=== PATIENT | female | born 2005 | race African-American/Black ===

== ENCOUNTER 2024-07-19 05:35 | Inpatient (IN) | payer OTHER, SELFPAY ==
[2024-07-18 21:20] VITALS: BP 136/98
[2024-07-18] MEDS: MOTRIN 400 MG PO (21:27)
--- NOTE | 2024-07-19 01:00 | EDRN ---
Patient back from waiting room introduced myself to patient, she had an IV in her left forearm which the hospital she left AMA from didn't take out, removed this IV
--- NOTE | 2024-07-19 01:39 | ED.GENMED ---
History of Present Illness
General
Chief Complaint: Oral/Mouth Problem
Source: patient and family (Mother)
Exam Limitations: none
Time Seen by Provider: 07/19/24 00:52
Nursing documentation reviewed up to this point in time: agreed with
History of Present Illness
History of Present Illness:
18-year-old female with no reported chronic medical issues presents to the ER for evaluation of right facial swelling and pain. Patient reports that symptoms initially started on Thursday and she was initially seen in urgent care told that she
likely had salivary stone and was told to use sialagogues and massage, warm compresses. Despite these measures she reports symptoms increased and she started to get significant pain and swelling in the area and so she ultimately presented to "[facility] late last night/early this morning. She was diagnosed with a right parotid abscess (per review of medical records which we were able to obtain) and it was felt that she needed emergent ENT evaluation and so she was transferred to ""[facility]. There she was apparently initially seen in triage but ultimately left prior to completing treatment and consultation. She says that she left because the wait was very long and she needed to get home. She decided to come
here for second opinion because she says that her facial pain is getting worse. She denies any fevers or chills. She denies any throat pain, change in her voice, drooling. Denies trauma. She denies any other complaints.
Review of Systems
Review of Systems
All Other Systems: ROS reviewed and negative except as documented in HPI and ROS
Constitutional: Denies fever or chills
EENT: Reports other (Facial swelling); Denies sore throat or runny nose
Respiratory: Denies trouble breathing
ABD/GI: Denies abdominal pain or vomiting
Neurological: Denies headache
Phy Exam
Physical Exam
Physical Exam:
General: Awake, alert, oriented x3; no acute distress
Head: Normocephalic, atraumatic
Eyes: Conjunctiva normal
Face: Patient has tenderness and swelling along the right preauricular region extending towards the angle of the mandible and slightly in the submandibular region on the right, area is warm and mildly erythematous, no crepitus, no fluctuance
appreciated
Throat: Airway intact, handling secretions, midline uvula, no tongue elevation, excellent dentition with no signs of gingivitis or swelling of the gums
Neck: Trachea midline, supple without meningismus
Lungs: Breathing comfortably no distress
Heart: Regular rate
Neuro: No gross deficits
Extremities: warm and well-perfused
Scores
Heart Failure Risk
Heart Failure Risk Score: Not Applicable
Heart Score for Chest Pain Patients
STEMI patient?: Not applicable
Withdrawal Assessment of Alcohol
Withdrawal Assessment Completed?: Not applicable
Sepsis
Sepsis Screening
Sepsis Assessment: Sepsis Ruled Out
Sepsis Screen
Sepsis Screen: Sepsis Ruled Out
Date: 07/19/24
Time: 03:37
Course
Orders/Labs/Results
Orders:
Orders
07/18/24 21:26
Ibuprofen [Motrin] 400 mg .ROUTE .STK-MED ONE
07/18/24 21:27
Ibuprofen [Motrin] 400 mg PO NOW STA
07/19/24 01:59
Complete Blood Count/With Diff Urgent
07/19/24 02:05
Consult Notification Routine
Specialty to Notify: ENT
ENT CONSULT Routine
Consulting Provider: Charli Sharif
Was physician already notified: No
Reason for Consult: right parotid abscess
07/19/24 02:21
Comprehensive Metabolic Panel Urgent
Comment: REDRAW
07/19/24 02:43
Ampicillin/Sulbactam 3 G [Unasyn] 3 gm 0.9% Sodium Chloride 100 ml [Nss] 100 ml IV NOW
Abnormal Lab Results
07/19/24 07/19/24
59 02:21
RBC 3.59 L 10^6/uL
(4.20-5.40)
Hgb 10.4 L g/dL
(12.0-16.0)
Hct 32.4 L %
(37.0-47.0)
MCHC 32.1 L g/dL
(33.0-37.0)
Absolute Monos (auto) 0.8 H 10^3/uL
(0.1-0.6)
Lymphocytes % 18.8 L %
(20.5-51.1)
Eosinophils % 6.4 H %
(0-6)
Glucose 101 H mg/dl
(70-99)
07/19/24 01:59
07/19/24 02:21
Vital Signs
Initial and Last Documented VS:
Initial Vital Signs
Temp Pulse Resp BP Pulse Ox
37.2 C 92 20 136/98 99
07/18/24 21:20 07/18/24 21:20 07/18/24 21:20 07/18/24 21:20 07/18/24 21:20
Last Documented Vital Signs
Temp Pulse Resp BP Pulse Ox
37.2 C 83 16 143/50 98
07/18/24 21:20 07/19/24 01:56 07/19/24 01:56 07/19/24 01:56 07/19/24 01:56
MDM/Problems Addressed
Differential Diagnosis Includes:
Dental abscess, parotid abscess, sialoadenitis
MDM/Problems Addressed:
18-year-old female presents with worsening right facial pain and swelling; diagnosed with a right parotid abscess earlier today was transferred for ENT referral at [place] but left prior to treatment completion. Vitals and exam as above.
Reviewed CT report from [facility] she does not yet have roughly 2 x 2 cm abscess in the right parotid region with stranding of the surrounding tissue. Will send CBC and a CMP. Treat with Unasyn. Consult to ENT. Admit for treatment and
consultation. Case discussed with hospitalist.
*Radiology
Radiology exam reviewed: radiology read reviewed (Reviewed external radiology report)
*Pulse Oximetry
Patient hypoxic: no
*Critical Care Note
Total Time (30-74mins, 75-104mins- exclusive of procedures): Not Applicable
Data Reviewed
Source: patient and family
Patient Management
Discussion with other providers: Hospitalist (Discussed with hospitalist)
Escalation/DeEscalation of care consider admission/obs:
Admission indicated
ED Attending Note
-
Portions of this chart may have been created with voice recognition software.� Occasional wrong word or��sound alike� substitutions may have occurred due to the inherent limitations of voice recognition software.
Discharge Plan
Departure
Patient Disposition: Admit
Date of Disposition: 07/19/24
Time of Disposition: 02:31
Admit to doctor: Kolby
Presentation/result/management discussed w/ accepting MD/DO: Hospitalist
Discharge Problem:
Abscess of parotid gland
Prescriptions:
No Action
No Current Medications
0
Referrals:
NONE,* [Family Provider] -
Interventions
Interventions:
*Risk Screen - Suicide Last Done: 07/18/24 21:20
*Neglect/Abuse Screening Last Done: 07/18/24 21:20
ED- Fall Risk Assessment Last Done: 07/19/24 02:11
Discharge Date and Time
Print Language: SAMI
[2024-07-19 01:56] VITALS: BP 143/50; BMI 46.9
[2024-07-19 02:10] LABS: % Basophils 0.4 % (0-2); % Eosinophils 6.4 % (0-6); % Immature Granulocytes 0.1 % (0-0.5); % Lymphocytes 18.8 % (20.5-51.1); % Monocytes 8.3 % (1.7-9.3); Absolute Eosinophils 0.6 10^3/uL (0-0.7); Absolute Lymphocytes 1.7 10^3/uL (1.2-3.4); Absolute Monocytes 0.8 10^3/uL (0.1-0.6); Absolute Neutrophils 6.1 10^3/uL (1.4-6.5); Hematocrit 32.4 % (37.0-47.0); Hemoglobin 10.4 g/dL (12.0-16.0); Mean Corp Hgb Conc. 32.1 g/dL (33.0-37.0); Mean Corpuscular Volume 90.3 fL (81.0-99.0); Mean Platelet Volume 9.3 fL (7.4-10.4); Nucleated Red Blood Cells % 0 %; Platelet Count 327 10^3/uL (130-400); Red Blood Cell Count 3.59 10^6/uL (4.20-5.40); Red Cell Dist. Width 13.9 % (11.5-14.5); White Blood Cell Count 9.2 10^3/uL (4.8-10.8)
[2024-07-19 02:40] LABS: ALT (SGPT) 18 U/L (0-35); AST (SGOT) 24 U/L (14-36); Albumin 3.7 g/dl (3.5-5.0); Alkaline Phosphatase 93 U/L (38-126); Blood Urea Nitrogen 9 mg/dl (7-17); Calcium 8.8 mg/dl (8.4-10.2); Carbon Dioxide 23 mmol/L (22-30); Chloride 106 mmol/L (98-107); Estimated Creatinine Clearance > 125 ml/min; Glucose 101 mg/dl (70-99); Potassium 3.8 mmol/L (3.5-5.1); Sodium 137 mmol/L (135-145); Total Bilirubin 0.3 mg/dl (0.2-1.3); Total Protein 6.5 g/dl (6.3-8.2); eGFR > 60.00
[2024-07-19] MEDS: UNASYN IV ×4 (03:13→22:04)
--- NOTE | 2024-07-19 04:52 | HPS.HSE ---
Family Physician
-
Family Physician: * NONE
Chief Complaint
-
Facial Pain / Swelling
History of Present Illness
Patient is a 18y F with no significant PMH who presents to ED complaining of R facial swelling for about one week. Patient states that she first noted the symptoms on Thursday. She was seen at an Urgent Care and diagnosed with sialoadenitis and
recommended NSAIDs, sour candies, etc. She states that the swelling continued to progress and on 07/18/24 she presented to [facility] for further evaluation. CT scan done there revealed a R parotid abscess. Patient reports that she was
transferred from [facility] to [place] for ENT evaluation. She waited several hours with no evaluation and then elected to leave that facility.
She then presented to ED for further evaluation.
Patient complains of progressive swelling and firmness over the R cheek and extending to the ear and into the neck.
No swallowing issues. No breathing difficulty. No fevers or chills.
There is no drainage / foul tasting discharge into the mouth.
She denies any prior history of similar symptoms.
Medical History
Past Medical History
Past Medical History: Reports None
Past Surgical History: Reports None
Social History
Tobacco: Smoker (Current every day smoker (quit one week ago).)
Alcohol: None
Drug: None
Family History
Family History: Other (Father: CHF, CKD)
Allergies / Home Medications
Allergies reflects when Allergies were last updated in [employer].
Home Medications with original date entered in [employer]
Allergy/Medication List:
Allergies
Allergy/AdvReac Type Severity Reaction Status Date / Time
peanut Allergy Swelling Verified 07/18/24 21:25
Home Medications
No Meds [No Current Medications] 07/19/24
Review of Systems
-
History Source: Patient
A 12 point ROS was completed and negative except as noted: Yes
Constitutional: Denies Fever or Chills
EENT: Reports Other (Facial swelling, tenderness, firmness.); Denies Sore Throat
Respiratory: Denies Cough or Trouble Breathing
Cardiac: Denies Chest Pain or Palpitations
Abdomen/GI: Denies Abdominal Pain, Nausea, Vomiting or Diarrhea
Musculoskeletal: Denies Joint Pain or Edema
Neurological: Denies Dizzy or Headache
Physical Exam
Vital Signs
Vital Signs
Temp Pulse Resp BP Pulse Ox
98.9 F 83 16 143/50 98
07/18/24 21:20 07/19/24 01:56 07/19/24 01:56 07/19/24 01:56 07/19/24 01:56
Physical Exam
General: Other (18y F in no acute distress.)
HEENT: Other (Induration, tenderness, mild erythema over the R face from the ear to the submandibular region. Pos regional adenopathy. No intra-oral lesions appreciated.)
Respiratory: Clear; No Wheezes, Rales or Rhonchi
Cardiac: S1/S2 and Regular Rhythm; No Murmur
Musculoskeletal: No Edema
Laboratory Results
-
07/19/24 01:59
07/19/24 02:21
Laboratory Results
Total Bilirubin 0.3 mg/dl (0.2-1.3) 07/19/24 02:21
AST 24 U/L (14-36) 07/19/24 02:21
ALT 18 U/L (0-35) 07/19/24 02:21
Alkaline Phosphatase 93 U/L (38-126) 07/19/24 02:21
Impression/Plan
-
A/P: Patient is a 18y F with no significant PMH who presents to ED complaining of R facial pain, swelling and redness that has been progressive for about one week.
Right Parotid Abscess
- Admit for further evaluation and treatment.
- IV Unasyn for now.
- Supportive care with pain control, etc.
- ENT evaluation for additional recommendations.
Anemia
- Unclear chronicity / etiology.
- Check iron studies. Follow for changes.
DVT Prophylaxis: SCDs
Code Status: Full
[2024-07-19 07:29] LABS: Iron 46 ug/dl (37-170)
[2024-07-19 07:38] LABS: Percent Saturation 16 % (20-50); Total Iron Binding Capacity 277 ug/dl (265-497)
[2024-07-19 08:13] VITALS: BP 121/76
[2024-07-19] MEDS: TORADOL 15 MG IV (09:23)
[2024-07-19] MEDS: NSS 1000 IV ×2 (09:24→20:31)
--- NOTE | 2024-07-19 12:18 | W.PN.UPDATE ---
Update Note
Progress Note Update
Seen and examined independent of pulmonary physician. Patient states of pain at the right mandibular side. States at home she was feeling hard.
Of note patient went to [facility] and then was transferred to [place] where she left AM. Per discussion with patient she was told she would require surgery. Stated it took prolonged period of time to be seen and left AMA.
[facility] records scanned into system
General: Other (18y F in no acute distress.) morbidly obese
HEENT: Other (Induration, tenderness, mild erythema over the R face from the ear to the submandibular region. Pos regional adenopathy. No intra-oral lesions appreciated.)
Respiratory: Clear; No Wheezes, Rales or Rhonchi
Cardiac: S1/S2 and Regular Rhythm; No Murmur
Musculoskeletal: No Edema
Abdomen positive bowel sounds nontender nondistended
Extremities no edema
Neuro awake alert and oriented
A/P: Patient is a 18y F with no significant PMH who presents to ED complaining of R facial pain, swelling and redness that has been progressive for about one week.
Right Parotid Abscess
- IV Unasyn for now. Started on IVF. NPO for now.
- Supportive care with pain control, etc.
-CT at the outside hospital with right parotid gland superficial lobe pinguecula space mildly enhancing lesion/abscess 2.6 x 1.4 cm in diameter with overlying contour bulge stranding and subcutaneous fat and thickened fascia. Enlarged right group
2 lymph nodes. Normal appearance of the mandible with no obvious osseous lesion.
- ENT evaluation for additional recommendations. Discussed with Dr. Wade.
Anemia
- Unclear chronicity / etiology.
- Check iron studies. Follow for changes.
Morbid obesity due to excess calories
-Counseled on weight loss after resolution of acute illness. BMI 47.
Marijuana usage
-UDS positive for THC at [facility] hospital
DVT Prophylaxis: started lovenox
Code Status: Full
--- NOTE | 2024-07-19 12:36 | CON.MD ---
Consultation - Medical
-
18 yo developed swelling R parotid region last several days
Was in outside ER and told she had an abscess, left due to long wait
Presently in less pain after pain med
Pt smokes, denies DM or dental issues
PE - Swollen, indurated area R parotid
No major cellulitis , no fluctuance
No adenopathy
A/P R parotitis
Clinically no definitive abscess, which would be an unusual finding in parotitis though possible
Would recheck CT with contrast as we do not have access to these films, pt agreeable
Agree with IV Unasyn, IV fluids
Warm compresses and a few doses of steroid
Should improve with medical management, but await review of CT
[2024-07-19 12:46] VITALS: BP 100/64
[2024-07-19 14:47] LABS: HCG, Serum Qualitative Screen Negative
[2024-07-19 15:02] LABS: Ferritin 35.8 ng/ml (6.24-137)
[2024-07-19 15:33] LABS: Folate 7.3 ng/ml (2.76-20); Vitamin B12 238 pg/ml (239-931)
[2024-07-19 15:54] VITALS: BP 131/68
--- NOTE | 2024-07-19 15:56 | PTCARENOTE ---
Transfer of patient care, report received from Anh in ED, VSS received patient AAOx3, lungs CTA, HRR, Abdomen soft, non tender + BS x 4 quadrants. IV fluids infusing to right wrist as MD order. Pt NPO since 11:30 AM. pt oob and ambulated to w/c
to be brought to ED [facility] for testing.
[2024-07-19] MEDS: DECADRON 6 MG IV ×2 (16:53→22:01)
--- NOTE | 2024-07-19 19:48 | W.PN.ENT ---
Today's Communication
-
No need for surgery at this point
Impression / Plan
-
CT scan is personally reviewed. It was read as a 12 mmm anterior abscess; this appears to be obstructed saliva in salivary duct as opposed to an abscess.
Because she is already improving, and because a surgery would entail scarring and risk of facial nerve drainage, this will be handled medically. We will continue antibiotics, aggressive hydration, and sialagogues.
Will follow
Subjective Data
-
Patient is feeling much better
Objective Data
-
Vital Signs
Temp Pulse Resp BP Pulse Ox
98.7 F 79 14 131/68 98
07/19/24 15:54 07/19/24 15:54 07/19/24 15:54 07/19/24 15:54 07/19/24 12:46
Lab Results
07/19/24 01:59
07/19/24 02:21
Calcium 8.8 mg/dl (8.4-10.2) 07/19/24 02:21
Total Bilirubin 0.3 mg/dl (0.2-1.3) 07/19/24 02:21
AST 24 U/L (14-36) 07/19/24 02:21
ALT 18 U/L (0-35) 07/19/24 02:21
Alkaline Phosphatase 93 U/L (38-126) 07/19/24 02:21
Physical Exam
-
Palpation is not c/w a drainable abscess
[2024-07-19] MEDS: LOVENOX 40 MG SC (20:26)
[2024-07-19 20:30] VITALS: BP 132/89
[2024-07-20 00:16] VITALS: BP 113/72
[2024-07-20] MEDS: NSS 1000 IV (03:43)
[2024-07-20 04:15] VITALS: BP 108/71
[2024-07-20] MEDS: UNASYN IV ×2 (04:16→10:01)
[2024-07-20 05:11] VITALS: BP 108/71
[2024-07-20] MEDS: DECADRON 6 MG IV (06:03)
[2024-07-20 06:35] LABS: % Basophils 0.1 % (0-2); % Immature Granulocytes 0.5 % (0-0.5); % Lymphocytes 7.7 % (20.5-51.1); % Monocytes 1.1 % (1.7-9.3); % Neutrophils 90.6 % (42.2-75.2); Absolute Lymphocytes 0.7 10^3/uL (1.2-3.4); Absolute Monocytes 0.1 10^3/uL (0.1-0.6); Absolute Neutrophils 7.8 10^3/uL (1.4-6.5); Hematocrit 37.1 % (37.0-47.0); Mean Corp Hgb Conc. 32.3 g/dL (33.0-37.0); Mean Corpuscular Hgb 28.9 pg (27.0-31.0); Mean Corpuscular Volume 89.4 fL (81.0-99.0); Mean Platelet Volume 10.2 fL (7.4-10.4); Nucleated Red Blood Cells % 0 %; Platelet Count 352 10^3/uL (130-400); Red Blood Cell Count 4.15 10^6/uL (4.20-5.40); Red Cell Dist. Width 13.6 % (11.5-14.5); White Blood Cell Count 8.6 10^3/uL (4.8-10.8)
[2024-07-20 07:01] LABS: Blood Urea Nitrogen 8 mg/dl (7-17); Carbon Dioxide 20 mmol/L (22-30); Chloride 104 mmol/L (98-107); Estimated Creatinine Clearance > 125 ml/min; Glucose 123 mg/dl (70-99); Potassium 4.4 mmol/L (3.5-5.1); Sodium 136 mmol/L (135-145); eGFR > 60.00
[2024-07-20 07:43] VITALS: BP 122/51
--- NOTE | 2024-07-20 07:52 | PTCARENOTE ---
Pt reporting having a normal BM today.
--- NOTE | 2024-07-20 08:00 | W.PN.UPDATE ---
Update Note
Progress Note Update
Pt feeling better
CT scan shows a small collection anteriorly, may be saliva
Afebrile
Still c induration over parotid, but no pain, no cellulitis
A/P Parotitis
Clinically improving but still present
Likely could be d/c'ed today on po Augmentin 875 mg po BID x 10 days
Continue warm compresses, hydration and sialogogues
Follow up as outpt ENT in approx 1 week
[2024-07-20] MEDS: LOVENOX 40 MG SC (08:38)
[2024-07-20] MEDS: CYANOCOBALAMIN 1000 MCG IM (08:39)
--- NOTE | 2024-07-20 11:01 | W.PN.HOSP.TC ---
Today's Communication/Plan
-
po abx
op ENT f/u
Assessment / Plan
Assessment / Plan
General: Other (18y F in no acute distress.) morbidly obese
HEENT: Other (Induration, tenderness, mild erythema over the R face from the ear to the submandibular region. Pos regional adenopathy. No intra-oral lesions appreciated.)
Respiratory: Clear; No Wheezes, Rales or Rhonchi
Cardiac: S1/S2 and Regular Rhythm; No Murmur
Musculoskeletal: No Edema
Abdomen positive bowel sounds nontender nondistended
Extremities no edema
Neuro awake alert and oriented
A/P: Patient is a 18y F with no significant PMH who presents to ED complaining of R facial pain, swelling and redness that has been progressive for about one week.
Right Paroitits
- IV Unasyn for now. po augmentin on dc. s/p 3 dose of steroids. Stop IVF.
- Supportive care with pain control, etc. Pt knows to avoid dry mouth and use lemon or other hard candy
-CT neck here noted and evaluated by ENT and not concerned for abscess.
-significant improvement in swelling.
Anemia
B12 def
- Unclear chronicity / etiology.
- start b12 supplementation
Morbid obesity due to excess calories
-Counseled on weight loss after resolution of acute illness. BMI 47.
Marijuana usage
-UDS positive for THC at [facility] hospital
DVT Prophylaxis: started lovenox
Code Status: Full
More than 30 minutes spent in discharge including
Final examination of the patient
Summarizing hospital stay
Instructions for continuing care to all relevant caregivers
Preparation of discharge records, prescriptions, and referral forms
Total time spent (in minutes): 55
Anticipated Discharge: Today
Subjective/Interval History
-
Date of Service: July 20, 2024
states significant Improvement in swelling
tolerating diet without any problem
Objective Data
-
Labs:
Laboratory Results
07/20/24
06:07
WBC 8.6
Hgb 12.0
Hct 37.1
Plt Count 352
Sodium 136
Potassium 4.4
Chloride 104
Carbon Dioxide 20 L
BUN 8
Creatinine 0.6
Glucose 123 H
Calcium 10.0
Vital Signs:
Vital Signs
Temp Pulse Resp BP Pulse Ox
98.0 F 76 17 122/51 98
07/20/24 07:43 07/20/24 07:43 07/20/24 07:43 07/20/24 07:43 07/19/24 12:46
I&O
07/19/24 07/20/24 07/21/24
06:59 06:59 06:59
Intake Total 120 / 120
Balance 120 / 120
--- NOTE | 2024-07-20 11:07 | W.DCSUMMARY ---
Discharge Summary
Discharge Data
Date of Admission: 07/19/24
Date of Discharge: 07/20/24
-
Pending Results: No
Hospital Course
18-year-old female past medical history of morbid obesity, anemia who is presenting with right facial swelling. Patient was outside hospital where she was found to have a parotid swelling and left AGAINST MEDICAL ADVICE. Patient upon admission was
started on IV antibiotics NPO. Patient was eval by ENT and patient underwent neck CT scan. CT scan showed Right parotitis with 12 mm abscess in the anterior aspect of the superficial lobe of the right parotid gland 8mm oval well-circumscribed
noncalcified mass at the posterior aspect of the superficial lobe of the right parotid gland which is probably but not definitively benign as CT does not reliably distinguish benign and malignant parotid neoplasm. Patient received 3 doses of IV
Decadron. By ENT not concern for abscess and likely obstructed and saliva noted. Not concern for malignancy. Patient was started on diet and stated she felt significantly better. Patient was tolerating diet. Patient said the pain is
significantly reduced. Patient is swelling has significantly improved. Per ENT patient can be discharged. Patient was tolerating diet and remained afebrile. Patient was also found to B12 deficiency received B12 supplementation. IV antibiotic
with transition to p.o. Augmentin on discharge. However did recommend to patient to follow-up closely with ENT upon discharge and discuss CAT scan finding about swelling benign lesion versus malignant cannot be differentiated. Patient understand
to follow-up with ENT..
Discharge Plan
-
Patient Disposition: Home (Routine Discharge)
Discharge Diagnosis/Procedures: Parotitis Right
Condition: Fair
Diet: Low Fat
Activity: No restrictions
Driving Restrictions: As prior to admission
Activity Restrictions/Additional Instructions:
Please call and make appt with ENT doctor.
Referrals:
Soto Burk MD [Active] - in one week (call to make appt. )
NONE,* [Family Provider] - in less than 1 week
Prescriptions:
New
amoxicillin-pot clavulanate 875-125 mg tablet
1 tab PO BID Qty: 20 0RF
cyanocobalamin (vitamin B-12) 1,000 mcg capsule
2,000 mcg PO DAILY Qty: 60 0RF
Discharge Orders:
Discharge Patient (As Directed); Ordered 07/20/24
Ordered By: Ramin Rodgers
Discharge Date and Time
Discharge Date/Time: 07/20/24 12:38
Print Language: GERMAN
--- NOTE | 2024-07-20 12:29 | PTCARENOTE ---
Pt D/c home by wheelchair, D/c instruction given to pt, no question at this time.
--- NOTE | 2024-07-20 12:30 | CM ---
Met with pt at bedside
Pt reports she lives with her mother and 2 brothers in a 2 story home; 24 steps to enter
Independent, employed FT, drives
DME - none
SNF/HH - denies past hx
Has ride at discharge
PCP - Currently does not have PCP. Plans to obtain one - will be getting new insurance
Pharm - [facility] in [place]
Plan - anticipate home no needs
== END 2024-07-20 12:38 | disposition home or self-care (01) | DRG 155 ==
LOC: LDRP 05:35
PROVIDERS: ADMITTING PHYSICIAN Hospitalist; ATTENDING PHYSICIAN Hospitalist; EMERGENCY PHYSICIAN Emergency Medicine; OTHER PHYSICIAN Otolaryngology
DX: K11.20 Sialoadenitis, unspecified (principal); Z68.42 Body mass index [BMI] 45.0-49.9, adult; D64.9 Anemia, unspecified; E66.01 Morbid (severe) obesity due to excess calories; E53.8 Deficiency of other specified B group vitamins; Z87.891 Personal history of nicotine dependence
CPT/HCPCS: 70492; 80048; 80053; 82607; 82728; 82746; 83540; 83550; 84703; 85025; 96365; 99285; Q9967

== ENCOUNTER 2024-10-15 07:37 | Emergency (ER) | payer OTHER, SELFPAY ==
[2024-10-15] VITALS (7 sets, daily range): BP systolic 100–127; BP diastolic 53–86; BMI 45.1
--- NOTE | 2024-10-15 08:49 | ED.GENMED ---
History of Present Illness
General
Chief Complaint: Abdominal Symptoms
Source: patient
Exam Limitations: none
Time Seen by Provider: 10/15/24 08:27
Nursing documentation reviewed up to this point in time: agreed with
History of Present Illness
History of Present Illness:
19-year-old female presents emergency department due to right nausea vomiting fever diarrhea fatigue and weakness. She was seen on October 11 at [facility]. She was given antinausea medicine and fluids. Potassium was low at that time.
Past History
Past History
ED Past Medical History: None
ED Past Surgical History: None
Social History
Tobacco: Former smoker
Alcohol: None
Drug: None
Living: with family
Employment: Employed
Review of Systems
Review of Systems
Allergies reviewed?: Yes
All Other Systems: Not applicable
Constitutional: Reports fever and fatigue
EENT: Reports no symptoms
Respiratory: Reports no symptoms
Cardiac: Reports no symptoms
ABD/GI: Reports nausea, vomiting and diarrhea
: Reports no symptoms
Musculoskeletal: Reports back pain
Skin: Reports no symptoms
Neurological: Reports no symptoms
Endocrine: Reports no symptoms
Hematologic/Lymphatic: Reports no symptoms
Psychiatric: Reports no symptoms
Phy Exam
Physical Exam
Physical Exam:
Physical Exam
General: no apparent distress, not acutely ill
Neck: supple. no meningeal signs. normal posterior pharynx
Heart: s1/s2 regular rate and rhythm, no murmur. equal radial
pulses.
HEENT: Pupils equal round reactive to light, EOMI
Lungs: no acute respiratory distress. clear bilaterally
Abdomen: normal bowel sounds. not tender. no CVAT
Neuro: alert and oriented. no focal neurological deficits cranial nerves II through XII intact
Skin: no rash
Psychiatric: well kept. interactive and cooperative
Extremities: no edema. no calf tenderness. negative homans. good distal pulses
Course
Orders/Labs/Results
Orders:
Orders
10/15/24 08:39
Test Result ONCE
10/15/24 08:44
CMP [Comprehensive Metabolic Panel] Urgent
Complete Blood Count/With Diff Urgent
HCG, Serum Qualitative Screen Urgent
Lipase Urgent
Magnesium Urgent
Urinalysis Reflex To Culture Urgent
Date Specimen was Collected: 10/15/24
Time Specimen was Collected: 08:32
Urine Microscopic Reflex Cult Urgent
Urine Culture Urgent
JS Source: U
Specimen Description:
Date Specimen was Collected: 10/15/24
Time Specimen was Collected: 08:32
10/15/24 08:53
IV Insert/Care/Rem.- Treatment PRN
Ondansetron Injectable [Zofran] 4 mg IV NOW STA
10/15/24 08:58
Lactated Ringers [Lr] 1,000 ml IV BOLUS
10/15/24 09:00
Lactated Ringers [Lr] 1,000 ml IV 999 mls/hr
Abnormal Lab Results
10/15/24
08:44
RBC 3.69 L 10^6/uL
(4.20-5.40)
Hgb 10.9 L g/dL
(12.0-16.0)
Hct 33.1 L %
(37.0-47.0)
MCHC 32.9 L g/dL
(33.0-37.0)
Absolute Lymphs (auto) 1.0 L 10^3/uL
(1.2-3.4)
Immature Gran % 0.6 H %
(0-0.5)
Lymphocytes % 19.7 L %
(20.5-51.1)
Sodium 134 L mmol/L
(135-145)
AST 98 H U/L
(14-36)
ALT 79 H U/L
(0-35)
Alkaline Phosphatase 144 H U/L
(38-126)
Ur Occult Blood Reflex 2+ A
(Negative)
Leukocyte Esterase Rfl 3+ A
(Negative)
Urine WBC (Reflex) 11-15 A /HPF
(0-5)
Urine Bacteria (Reflex) Few A
(Negative)
Urine Albumin (Reflex) 1+ A
(Neg - Trace)
10/15/24 08:44
10/15/24 08:44
Vital Signs
Initial and Last Documented VS:
Initial Vital Signs
Temp Pulse Resp BP Pulse Ox
98.8 F 103 20 127/86 98
10/15/24 07:47 10/15/24 07:47 10/15/24 07:47 10/15/24 07:47 10/15/24 07:47
Last Documented Vital Signs
Temp Pulse Resp BP Pulse Ox
98.8 F 79 25 123/64 100
10/15/24 07:47 10/15/24 08:45 10/15/24 08:45 10/15/24 08:30 10/15/24 08:30
MDM/Problems Addressed
Differential Diagnosis Includes:
Gastroenteritis, electrolyte disturbance,
MDM/Problems Addressed:
19-year-old female with nausea vomiting diarrhea, likely viral illness. Abdomen exam benign. Do not suspect appendicitis, bowel obstruction or epidural abscess. Patient stable for discharge. Prescribed Zofran.
*Pulse Oximetry
Patient hypoxic: no
*Critical Care Note
Total Time (30-74mins, 75-104mins- exclusive of procedures): Not Applicable
Data Reviewed
Further Testing Considered But Not Given:
ct a/p not indicated
Patient Management
Social determinants of health affecting care: Living situation
Escalation/DeEscalation of care consider admission/obs:
admit not indicated
ED Attending Note
-
Portions of this chart may have been created with voice recognition software.� Occasional wrong word or��sound alike� substitutions may have occurred due to the inherent limitations of voice recognition software.
Discharge Plan
Departure
Patient Disposition: Home (Routine Discharge)
Date of Disposition: 10/15/24
Time of Disposition: 10:57
Patient with high blood pressure during this ER visit?: Yes
Condition: Good
Discharge Problem:
Nausea vomiting and diarrhea
Instructions: Diarrhea in teens and adults, Nausea and Vomiting, Adult (DC), BLOOD PRESSURE
Prescriptions:
New
ondansetron HCl 4 mg tablet
4 mg PO Q8H PRN (Reason: nausea and vomiting) 5 Days Qty: 7 0RF
No Action
amoxicillin-pot clavulanate 875-125 mg tablet
1 tab PO BID Qty: 20 0RF
cyanocobalamin (vitamin B-12) 1,000 mcg capsule
2,000 mcg PO DAILY Qty: 60 0RF
Referrals:
UNKNOWN - PT DOES,NOT KNOW [Family Provider] -
Interventions
Interventions:
*Risk Screen - Suicide Last Done: 10/15/24 07:52
*General Assessment Last Done: 10/15/24 08:19
*Neglect/Abuse Screening Last Done: 10/15/24 08:19
*ED- Fall Risk Assessment Last Done: 10/15/24 08:19
*ED COVID-19 Vaccine History Last Done: 10/15/24 08:19
CA-Wjhber-Lalmthbftw Assessment Last Done: 10/15/24 08:19
Discharge Date and Time
Print Language: MARTINIQUAIS
[2024-10-15] MEDS: ZOFRAN 4 MG IV (08:59)
[2024-10-15] MEDS: LR 1000 IV (08:59)
[2024-10-15 09:10] LABS: HCG, Serum Qualitative Screen Negative
[2024-10-15 09:11] LABS: Urine Albumin 1+ (Neg - Trace); Urine Bilirubin Negative (Negative); Urine Character Cloudy (Clear); Urine Color Yellow; Urine Glucose Negative (Negative); Urine Ketone Negative (Negative); Urine Leukocyte 3+ (Negative); Urine Nitrite Negative (Negative); Urine Occult Blood 2+ (Negative); Urine Specific Gravity 1.005 (<1.030); Urine Urobilinogen Negative (Neg - 1+)
[2024-10-15 09:14] LABS: ALT (SGPT) 79 U/L (0-35); AST (SGOT) 98 U/L (14-36); Albumin 3.7 g/dl (3.5-5.0); Alkaline Phosphatase 144 U/L (38-126); Blood Urea Nitrogen 7 mg/dl (7-17); Calcium 9.1 mg/dl (8.4-10.2); Carbon Dioxide 28 mmol/L (22-30); Chloride 101 mmol/L (98-107); Estimated Creatinine Clearance 123 ml/min; Glucose 94 mg/dl (70-99); Lipase 86 U/L (23-300); Potassium 3.8 mmol/L (3.5-5.1); Sodium 134 mmol/L (135-145); Total Bilirubin 0.7 mg/dl (0.2-1.3); Total Protein 6.7 g/dl (6.3-8.2); eGFR > 60.00
[2024-10-15 09:39] LABS: Hematocrit 33.1 % (37.0-47.0); Hemoglobin 10.9 g/dL (12.0-16.0); Mean Corp Hgb Conc. 32.9 g/dL (33.0-37.0); Mean Corpuscular Hgb 29.5 pg (27.0-31.0); Mean Corpuscular Volume 89.7 fL (81.0-99.0); Mean Platelet Volume 9.3 fL (7.4-10.4); Platelet Count 227 10^3/uL (130-400); Red Blood Cell Count 3.69 10^6/uL (4.20-5.40); Red Cell Dist. Width 13.4 % (11.5-14.5)
[2024-10-15 10:02] LABS: Urine Squamous Cell >30 /LPF (Few)
[2024-10-15 10:03] LABS: Urine Bacteria Few (Negative); Urine Red Blood Cell 0-2 /HPF (0-2)
[2024-10-15 10:49] LABS: % Basophils 0.6 % (0-2); % Eosinophils 1.6 % (0-6); % Immature Granulocytes 0.6 % (0-0.5); % Lymphocytes 19.7 % (20.5-51.1); % Monocytes 4.2 % (1.7-9.3); % Neutrophils 73.3 % (42.2-75.2); Absolute Eosinophils 0.1 10^3/uL (0-0.7); Absolute Monocytes 0.2 10^3/uL (0.1-0.6); Absolute Neutrophils 3.7 10^3/uL (1.4-6.5); Nucleated Red Blood Cells % 0 %
--- NOTE | 2024-10-15 11:30 | EDRN ---
Reviewed discharge instructions with patient. Verbalized understanding. Ambulated with steady gait to the lobby.
== END 2024-10-15 11:30 | disposition home or self-care (01) ==
LOC: EMR 07:37
PROVIDERS: EMERGENCY PHYSICIAN Emergency Medicine
DX: R11.2 Nausea with vomiting, unspecified (principal); R19.7 Diarrhea, unspecified; Z87.891 Personal history of nicotine dependence
CPT/HCPCS: 96374; 96361; 99284; 80053; 81003; 81015; 83690; 83735; 84703; 85025; 87086